=== PATIENT | male | born 1945 | race Caucasian/White ===

== ENCOUNTER 2017-07-01 12:22 | Observation (INO) ==
--- NOTE | 2017-06-30 08:58 | Discharge Summary ---
<Siria Loera E - Last Filed: 06/30/17 08:55> Date of Encounter: 06/30/17 - Discharge Diagnosis (1) Status post total right knee replacement Priority: Primary Status: Acute (2) Arthritis of right knee Priority: Primary Status: Chronic (3) Pain in right knee Priority: Primary Status: Chronic Qualifiers: Chronicity: chronic Qualified Code(s): M25.561 - Pain in right knee; G89.29 - Other chronic pain; G89.29 - Other chronic pain (4) Chronic pain Priority: Secondary Status: Chronic Qualifiers: Chronic pain type: other chronic pain Qualified Code(s): G89.29 - Other chronic pain (5) HLD (hyperlipidemia) Priority: Secondary Status: Chronic Qualifiers: Hyperlipidemia type: unspecified Qualified Code(s): E78.5 - Hyperlipidemia , unspecified (6) HTN (hypertension) Priority: Secondary Status: Chronic Qualifiers: Hypertension type: unspecified Qualified Code(s): I10 - Essential (primary ) hypertension (7) Obesity Priority: Secondary Status: Chronic Qualifiers: Obesity type: unspecified obesity type Obesity classification: unspecified obesity classification Serious obesity comorbidity presence: unspecified whether serious comorbidity present Qualified Code(s): E66.9 - Obesity, unspecified - Hospital Course Hospital course: Mr. Alston is a 71 year old male - Time Spent with Patient Total time spent providing and/or coordinating discharge services: - Discharge Medications Home Medications: Aspirin 325 mg PO DAILY 01/16/16 [History] Lisinopril [Zestril] 40 mg PO DAILY 01/16/16 [History] Multivitamin [Multivitamins] 1 each PO DAILY 01/16/16 [History] [place]-3/Dha/Epa/Fish Oil [Fish Oil 1,000 mg Softgel] 1 each PO DAILY 01/16/16 [ History] Omeprazole [PriLOSEC] 40 mg PO DAILY 01/16/16 [History] Saw [place] 160 mg PO DAILY 01/16/16 [History] Simvastatin [Zocor] 20 mg PO HS 01/16/16 [History] Tamsulosin [Flomax] 0.4 mg PO DAILY 01/16/16 [History] Aspirin Enteric Coated [Aspirin EC] 325 mg PO BID 10 Days #20 tab 06/30/17 [Rx] HYDROcodone/Acet 10/325 mg [[place] 10-325 mg] 1 tab PO Q6H PRN 07/01/17 [History] Allergies/Adverse Reactions: 3 Allergy/AdvReac Type Severity Reaction Status Date / Time No Known Allergies Allergy Verified 07/01/17 12:52 Primary care physician: Krunal Reed - Patient Status Disposition: Home, Self-Care Condition: Good - Discharge Instructions Follow Up With: Adarsh Urena DO [Primary Care Provider] - <Gilberto Paz - Last Filed: 07/02/17 06:26> Orders not resulted at time of discharge: Pending orders 07/01/17 01:00 XR knee RT limited 1-2V [XR] Routine Hemoglobin and Hematocrit [HEME] Routine 07/01/17 13:59 Chem 7 [Basic Metabolic Panel] Stat 07/01/17 14:11 US anesthesia pain block [US] Routine Date of Encounter: 07/02/17 Time of Encounter: 06:25 - Discharge Diagnosis (1) Obesity (BMI 30.0-34.9) Priority: Secondary Status: Chronic (2) HTN (hypertension) Priority: Secondary Status: Chronic Qualifiers: Hypertension type: unspecified secondary hypertension Qualified Code(s): I15.9 - Secondary hypertension, unspecified; I15 - Secondary hypertension (3) Status post total right knee replacement Priority: Primary Status: Acute (4) Arthritis of right knee Priority: Primary Status: Chronic (5) Chronic pain Priority: Secondary Status: Chronic Qualifiers: Chronic pain type: other chronic pain Qualified Code(s): G89.29 - Other chronic pain (6) HLD (hyperlipidemia) Priority: Secondary Status: Chronic Qualifiers: Hyperlipidemia type: unspecified Qualified Code(s): E78.5 - Hyperlipidemia , unspecified (7) HTN (hypertension) Priority: Secondary Status: Chronic Qualifiers: Hypertension type: unspecified Qualified Code(s): I10 - Essential (primary ) hypertension - Hospital Course Hospital course: Mr. Alston is a 71 year old male Status post right total knee replacement The patient had an uneventful postoperative course. They received antibiotics and physical therapy and were discharged in stable condition. There will follow -up in the office in 2 weeks. - Time Spent with Patient Total time spent providing and/or coordinating discharge services: Primary care physician: Krunal Reed Labs on day of discharge: Labs from last 24 hours 07/01/17 13:59 WBC 8.0 RBC 4.91 Hgb 13.9 Hct 41.0 MCV 83.5 MCH 28.3 MCHC 33.9 RDW 12.6 Plt Count 214 MPV 9.6 Immature Gran % 0.4 Seg Neutrophils % 64.1 Lymphocytes % 27.3 Monocytes % 6.0 Eosinophils % 1.7 Basophils % 0.5 Neutrophils # 5.1 Lymphocytes # 2.2 Monocytes # 0.5 Eosinophils # 0.1 Basophils # 0.0 - Patient Status Functional capacity at discharge: uses cane/walker Overall status at discharge: patient is progressing back to baseline
[2017-07-01] MEDS ORDERED: CeFAZolin Syr 2,000MG/20 ML 2,000 MG/20 ML SYRINGE IVPB ONE (12:51)
[2017-07-01] MEDS ORDERED: Ringers Solution, Lactated 1,000 ML IVC SCH ×2 (13:00→17:40)
[2017-07-01] MEDS ORDERED: Famotidine 20 MG/2 ML VIAL IVP ONE (13:50)
[2017-07-01] MEDS ORDERED: Pregabalin 75 MG CAPSULE PO ONE (13:51)
--- NOTE | 2017-07-01 14:14 | Anesthesia Evaluation PreOp ---
Date of Encounter: 07/01/17 Time of Encounter: 14:10 - Past History Planned Operation: Rt TKA Cardiac History: HTN, Hyperlipidemia Pulmonary History: Denies Any Significant HX RETINA SUBSPECIALIST History: Denies Any Significant HX Other Medical History: GERD, Other (OA) Anesthesia History: No Prior Anesthetic Complications Alcohol Use: occasionally Drug use: none Medications and Allergies Aspirin 325 mg PO DAILY 01/16/16 [History] Lisinopril [Zestril] 40 mg PO DAILY 01/16/16 [History] Multivitamin [Multivitamins] 1 each PO DAILY 01/16/16 [History] [place]-3/Dha/Epa/Fish Oil [Fish Oil 1,000 mg Softgel] 1 each PO DAILY 01/16/16 [ History] Omeprazole [PriLOSEC] 40 mg PO DAILY 01/16/16 [History] Saw [place] 160 mg PO DAILY 01/16/16 [History] Simvastatin [Zocor] 20 mg PO HS 01/16/16 [History] Tamsulosin [Flomax] 0.4 mg PO DAILY 01/16/16 [History] Aspirin Enteric Coated [Aspirin EC] 325 mg PO BID 10 Days #20 tab 06/30/17 [Rx] HYDROcodone/Acet 10/325 mg [[place] 10-325 mg] 1 tab PO Q6H PRN 07/01/17 [History] 3 Allergy/AdvReac Type Severity Reaction Status Date / Time No Known Allergies Allergy Verified 07/01/17 12:52 - Meds/Allergy Pre-op Review Medications Reviewed: Yes Allergies Reviewed: Yes Beta Blockers on Current Med List: No Anesthesia Results - Labs Laboratory Tests 01/10/16 01/17/16 05/24/17 09:45 03:58 07:33 Hgb 12.7 L Hct 36.6 L Plt Count 217 Sodium 141 Potassium 4.2 BUN 30 H Creatinine 1.16 - Imaging EKG: report reviewed (SR Rt BBB) Anesthesia Exam O2 Sat Height 1.63 m Height 1.63 m Height 1.63 m Weight 91.172 kg Weight 91.172 kg Weight 91.172 kg O2 Sat by Pulse Oximetry 95 Vital Signs Temp Pulse Resp BP Pulse Ox 97.9 F 57 18 134/78 95 07/01/17 12:40 07/01/17 12:40 07/01/17 12:40 07/01/17 12:40 07/01/17 12:40 Height: 5'4 Weight: 200 lbs NPO (# of Hours): MN Pain Scale: 0 - HEENT Pupil (Motor): Pupils equal, EOMI Mallampati: II Teeth: Normal Oral Opening: Greater than 3 - RETINA SUBSPECIALIST LOC: Oriented RETINA SUBSPECIALIST Motor: Normal RUE, Normal LUE, Normal RLE, Normal LLE, Normal Face RETINA SUBSPECIALIST Sensory: Normal: RUE, LUE, RLE, LLE, Face - Cardiac Rhythm: Regular Murmur: None JVD: No Carotid Bruit: No - Pulmonary Breath Sounds: bilateral Clear Respiratory Effort: Symmetrical Anesthesia Assess/Plan ASA Score: 2 Modified Pingree Scale for Level of Consciousness: Cooperative, oriented, and tranquil Anesthetic Plan: Regional, MAC Monitoring Plan: Standard Monitors Recovery Plan: PACU (Discussed SAB with Adductor Canal Block and MAC, possible GA, agrees to proceed)
[2017-07-01 14:18] LABS: Basophils % 0.5 %; Eosinophils # 0.1 K/mcL (0.0-0.6); Eosinophils % 1.7 %; Hemoglobin 13.9 g/dL (12.9-16.9); Immature Granulocytes % 0.4 % (0-4); Lymphocytes # 2.2 K/mcL (0.6-4.6); Lymphocytes % 27.3 %; Mean Corpuscular HGB Conc 33.9 g/dL (31.6-35.5); Mean Corpuscular Hemoglobin 28.3 pg (28.0-33.3); Mean Corpuscular Volume 83.5 fL (83.0-100.0); Mean Platelet Volume 9.6 fL (9.4-12.4); Monocytes # 0.5 K/mcL (0.0-1.3); Neutrophils # 5.1 K/mcL (1.6-8.9); Platelet Count 214 K/mcL (140-400); Red Blood Count 4.91 M/mcL (4.19-5.50); Red Cell Distribution Width 12.6 % (11.5-14.5); Segmented Neutrophils % 64.1 %
[2017-07-01] MEDS ORDERED: Propofol 500 MG/50 ML INFUS..BTL ONE ×2 (14:22→14:26)
[2017-07-01] MEDS ORDERED: Lidocaine -MPF 2% 2 ML VIAL ONE (14:25)
[2017-07-01] MEDS ORDERED: *HR* Succinylcholine 200 MG/10 ML VIAL IVP ONE (14:25)
[2017-07-01] MEDS ORDERED: Lidocaine -MPF 4% 5 ML AMPUL ONE (14:25)
[2017-07-01] MEDS ORDERED: Dexamethasone 4 MG/ML VIAL ONE (14:25)
[2017-07-01] MEDS ORDERED: Ondansetron 4 MG/2 ML VIAL ONE (14:25)
[2017-07-01] MEDS ORDERED: *HR* Propofol 200 MG/20 ML VIAL IVP ONE (14:26)
[2017-07-01] MEDS ORDERED: *HR* Midazolam HCl 2 MG/2 ML VIAL ONE (14:26)
[2017-07-01] MEDS ORDERED: *HR* FentaNYL (PF) 100 MCG/2 ML VIAL ONE (14:26)
[2017-07-01] MEDS ORDERED: ROPIVACAINE HCL/PF 0.5% 30 ML VIAL ONE (14:40)
--- NOTE | 2017-07-01 14:40 | History & Physical Report ---
Date of Encounter: 07/01/17 Time of Encounter: 14:39 24 Hour HP Update - Instructions Instructions: If the History and Physical is less than 30 days old and was completed prior to A.M. admission and or procedure and has NOT been updated on calendar day of procedure please complete this update prior to performing procedure. - Update Patient reports changes in Medical Condition: No Changes in examination, assessment, or condition: No Changes in Medication: No Preop tests/diagnostics Reviewed: Yes Surgery Remains Indicated: Yes Consent for Planned Operative Procedure(s) Verified: Yes - Pre-Operative Checklist Preoperative Checklist Indicated: No Prophylactic Antibiotic Ordered: Yes Is VTE Prophylaxis Indicated?: Yes
[2017-07-01 14:54] LABS: BUN/Creatinine Ratio 30 (6-26); Blood Urea Nitrogen 30 mg/dL (8-23); Carbon Dioxide 24 mEq/L (23-29); Chloride 108 mEq/L (98-107); Glucose 101 mg/dL (70-105); Osmolality,Calculated 298 (280-300); Potassium 4.7 mEq/L (3.5-5.1); Sodium 141 mEq/L (136-145); eGFR For African Americans > 60 (> 60); eGFR For Non-African Americans > 60 (> 60)
[2017-07-01] MEDS ORDERED: Ethanol\\Acetic Acid\\Na Ace\\Ben 1,000 ML IRRIG.SOLN IR ONE (15:17)
--- NOTE | 2017-07-01 15:35 | Anesthesia Procedures ---
Date of Encounter: 07/01/17 Time of Encounter: 14:10 Procedures: Anesthesia - Epidural/Spinal Patient ID/Chart reviewed: Yes Patient examined: Yes Supplemental Oxygen: Nasal Cannula (2) Supplemental Oxygen Rate (L/min): 2 Sedation: Versed (mg): 2 Sedation: Fentanyl (mcg): 100 Site Prep: Aseptic Technique, Sterile prep and drape, Povidone-Iodine 1% Patient position: upright Amount of Local Anesthetic used: 5 Interspace Used: L4-L5 Loss of Resistance (LYLY): No Blood: No CSF: Yes Paresthesia: No Spinal Needle Gauge: 24 Spinal Dose: 2cc 0.5% Marcaine, Duramorph 0.3 mg Procedure: Patient sitting,sterile prep and drape 24 g needle, csf, patient tolerated procedure well Vitals + FHT's: Vital Signs/O2 Sat/Glucose, Most Current Temp Pulse Resp BP Pulse Ox 07/01/17 15:19 57 13 97/85 99 07/01/17 15:14 61 13 101/80 99 07/01/17 15:09 60 14 103/56 97 07/01/17 14:55 56 16 107/59 98 07/01/17 12:40 97.9 F 57 18 134/78 95 - Nerve Block Procedure Date: 07/01/17 Pre-op Diagnosis: OA Rt Knee Surgical Procedure: Rt TKA Checklist: Correct Patient Identifier Correct side: Right Blood Thinner: No Monitor Applied: EKG, BP, Pulse Oximetry Supplemental Oxygen via Nasal Cannula (L/min): 2 Sedation: Versed (mg): 2 Sedation: Fentanyl (mcg): 100 Indication: Post Op Analgesia Pre-op Neuro Deficits: No Block Type: Other (Adductor Canal Block) Catheter placed: No Depth at skin (cm): 4 Sterile Technique: Yes Ultrasound used: Yes Anatomy identified: Yes Visual spread of Local: Yes Neuro Stimulation: No Blood on Needle Aspiration: No Smooth Injection of Local: Yes Pain with Injection of Local: No Prep: Chlorhexadine Needle: 21 x 100 mm Stimuplex Local: Ropivacaine, Other (precedex 0.2 mg) Volume (cc): 30cc Number of Attempts: 1 Complications: None/effective block Vitals: Vital Signs/O2 Sat/Glucose, Most Current Temp Pulse Resp BP Pulse Ox 07/01/17 15:19 57 13 97/85 99 07/01/17 15:14 61 13 101/80 99 07/01/17 15:09 60 14 103/56 97 07/01/17 14:55 56 16 107/59 98 07/01/17 12:40 97.9 F 57 18 134/78 95
[2017-07-01] MEDS ORDERED: EPHEDrine 50 MG/ML VIAL ONE (15:38)
[2017-07-01] MEDS ORDERED: Ondansetron 4 MG/2 ML VIAL IVP PRN ×3 (16:22→17:40)
[2017-07-01] MEDS ORDERED: *HR* OxyCODONE/APAP 5/325 TABLET PO PRN ×5 (16:22→17:40)
[2017-07-01] MEDS ORDERED: Naloxone 0.4 MG/ML INJ IVP PRN ×4 (16:22→17:40)
--- NOTE | 2017-07-01 16:25 | Orthopedic Operative Note ---
Date of procedure: 07/01/17 Pre-op diagnosis: right knee arthritis Post-op diagnosis: same Procedure: Procedure: Right robotic-assisted Total knee replacement Estimated blood loss: 200 cc Hardware: Metal and polyethylene replacement. [place] Femur: 4 Tibia: 4 TS insert: 13 Patella: 36 Exam Under anesthesia: 1 degree flexion contracture 17 degree varus as calculated by the robot full flexion and no instability Procedural Notes: Grade 4 arthritic changes all 3 compartments. Operative procedure: The patient was brought to the operating room and placed on the operating room table. After general anesthesia was administered the operative knee was examined. Findings were noted in the exam under anesthesia. The operative extremity was prepped and draped in sterile surgical fashion. The patient received IV antibiotics prior to skin incision. A standard midline incision was made centered over the patella. The incision was made through the skin and subcutaneous tissue. A medial parapatellar tendon approach was performed. Care was taken to preserve tissue along the medial aspect of the patella. And to protect the patella tendon. The deep MCL was released off the medial tibia. The infra patella fat pad was excised. The patella was everted and cut was made at the level of the insertion of the quadriceps and patella tendon. The patella was sized to 36 the guide was seated and the lug holes are drilled. Knee was brought into flexion. Patient noted to have grade 4 arthritic changes all 3 compartments. Steinmann pins were placed in the tibia and the femur for the tibial and femoral arrays respectively. Checkpoints were also placed in the tibia and the femur for calculation purposes. The knee including the femur and the tibial registered. Osteophytes, ACL and PCL were excised at this point. Extension and flexion were assessed with a valgus stress components were adjusted on the computer to balance the knee. Femoral cuts were made first with robotic assistance, these included the anterior cut posterior cuts chamfer cuts. Tibial cut was then performed with robotic assistance as well. Bone fragments were removed, as well as the medial and lateral meniscus. The size 4 femoral guide was seated box cut was made lug holes are drilled. The size 4 tibial tray was seated and prepared with the fin cutter. Trial reduction with the 13 TS Rakel revealed extension of0 degree , 6 degrees varus and full flexion. No varus valgus instability. Trial reduction revealed excellent patella tracking. All trial components were removed all bony surfaces were irrigated. The Tibia was seated followed by the femur, The Rakel size 13 was seated and secured patella. Patient had similar findings for motion and stability. The knee was closed by the PA. The knee was then irrigated out with 2 L of pulse irrigation. The extensor mechanism was closed with #2 FiberWire suture and #2 PDS suture. The subcutaneous tissue was then irrigated and closed deep with #1 PDS suture superficially with 0 PDS suture and skin was closed with zip tie The patient was then placed in a sterile dressing and a postoperative brace extubated and transferred to recovery room in stable condition. Anesthesia: spinal Surgeon: Gilberto Paz Was there an medical billing assistant present: Yes Freight Agent: Ana Glover Estimated blood loss (cc): 200 Condition: stable Disposition: PACU
[2017-07-01] MEDS ORDERED: Ondansetron 4 MG/2 ML VIAL IVP ONE (16:31)
[2017-07-01] MEDS ORDERED: MORPHINE SUL Oral CONC 10 MG/0.5 ML ORAL.SYG SL PRN (16:31)
[2017-07-01] MEDS ORDERED: *HR* Promethazine 25 MG/ML VIAL IVP PRN (16:31)
[2017-07-01 17:20] LABS: Hematocrit 39.4 % (37.5-50.1); Hemoglobin 13.4 g/dL (12.9-16.9)
--- NOTE | 2017-07-01 17:25 | Anesthesia Evaluation Post Op ---
Date of Encounter: 07/01/17 Time of Encounter: 17:19 - Vital Signs Vital Signs: vss - Lungs Lungs: Clear Ascult./Percussion - Airway Airway: Non-obstructed - Cardiovascular Baseline Rhythm - Mental Status Mental Status: Asleep with brisk response to light stimulation - Pain Pain Scale used: Linda (Faces) - Nausea Vomiting Nausea Vomiting: Not Present - Hydration Hydration: Ice chips - Discharge PostOp Status: Transfer Patient to floor
[2017-07-01] MEDS ORDERED: *HR* Morphine 2 MG/ML SYRINGE IVP PRN ×2 (17:26→17:40)
[2017-07-01] MEDS ORDERED: Temazepam 15 MG CAPSULE PO PRN (17:40)
[2017-07-01] MEDS ORDERED: Sennosides 8.6 MG TABLET PO PRN (17:40)
[2017-07-01] MEDS ORDERED: MOM Conc 10 ML UD.LIQ PO PRN (17:40)
[2017-07-01] MEDS ORDERED: *HR* Enoxaparin 30 MG/0.3 ML SYRINGE SQ SCH (18:00)
[2017-07-01] MEDS: *HR* Enoxaparin 30 MG/0.3 ML SYRINGE SQ SCH (18:21)
[2017-07-01] MEDS: ceFAZolin 2,000 MG in 0.9 % Sodium Chloride 100 ML IVPB SCH (23:06)
[2017-07-01] MEDS: traMADol 50 MG TABLET PO PRN (23:47)
[2017-07-02 02:14] LABS: Hematocrit 36.1 % (37.5-50.1); Hemoglobin 12.3 g/dL (12.9-16.9)
[2017-07-02 02:25] LABS: BUN/Creatinine Ratio 23 (6-26); Blood Urea Nitrogen 29 mg/dL (8-23); Calcium 8.4 mg/dL (8.6-10.3); Carbon Dioxide 24 mEq/L (23-29); Chloride 103 mEq/L (98-107); Glucose 167 mg/dL (70-105); Osmolality,Calculated 288 (280-300); Potassium 4.6 mEq/L (3.5-5.1); Sodium 134 mEq/L (136-145); eGFR For African Americans > 60 (> 60); eGFR For Non-African Americans 56 (> 60)
[2017-07-02] MEDS: *HR* Enoxaparin 30 MG/0.3 ML SYRINGE SQ SCH ×2 (04:52→17:44)
--- NOTE | 2017-07-02 06:27 | Orthopedics Progress Note ---
Date of Encounter: 07/02/17 Time of Encounter: 06:26 - Assessment and Plan (1) Obesity (BMI 30.0-34.9) Current Visit: Yes Status: Chronic (2) HTN (hypertension) Current Visit: No Status: Chronic Qualifiers: Hypertension type: unspecified secondary hypertension Qualified Code(s): I15.9 - Secondary hypertension, unspecified; I15 - Secondary hypertension (3) Status post total right knee replacement Current Visit: No Status: Acute (4) Arthritis of right knee Current Visit: No Status: Chronic (5) Chronic pain Current Visit: No Status: Chronic Qualifiers: Chronic pain type: other chronic pain Qualified Code(s): G89.29 - Other chronic pain (6) HLD (hyperlipidemia) Current Visit: No Status: Chronic Qualifiers: Hyperlipidemia type: unspecified Qualified Code(s): E78.5 - Hyperlipidemia , unspecified (7) HTN (hypertension) Current Visit: No Status: Chronic Qualifiers: Hypertension type: unspecified Qualified Code(s): I10 - Essential (primary ) hypertension Subjective Interval history: Patient was seen this morning doing well without complaints. Afebrile vital signs stable. Operative extremity: Neurovascularly intact Dressing clean dry and intact Calves nontender Assessment and plan: Continue with postoperative care Hematocrit 36 discharged today Objective Vital signs: Vital Signs Temp Pulse Resp BP Pulse Ox 07/02/17 04:30 98.6 F 77 17 119/64 94 07/02/17 01:04 98.1 F 86 18 127/89 96 07/01/17 20:00 97.8 F 88 16 128/74 07/01/17 19:03 97.8 F 65 14 126/77 95 07/01/17 18:16 97.8 F 66 16 118/67 95 07/01/17 17:31 97.5 F L 70 16 126/72 97 07/01/17 17:21 97.3 F L 65 16 118/83 96 07/01/17 17:11 65 16 116/85 98 07/01/17 17:01 64 16 118/75 97 07/01/17 16:51 97.3 F L 69 16 116/68 95 07/01/17 15:19 57 13 97/85 99 07/01/17 15:14 61 13 101/80 99 07/01/17 15:09 60 14 103/56 97 07/01/17 14:55 56 16 107/59 98 07/01/17 12:40 97.9 F 57 18 134/78 95 Intake and Output 07/01/17 07/01/17 07/02/17 15:59 23:59 07:59 Intake Total 20 / 20 150 / 150 50 / 50 Output Total 200 / 200 850 / 850 Balance 20 / 20 -50 / -50 -800 / -800 Intake: IV Fluids 20 / 20 100 / 100 Ancef Syringe 2,000 MG/20 ML 2, 20 / 20 000 mg In 20 ml @ 200 mls/hr IVPB PREOP ONE Rx#:[id number] Ancef 2,000 MG In 0.9 % Sodium 100 / 100 Chloride 100 ML @ 200 mls/hr IVPB Q8HR KAILEE Rx#:[id number] Oral 50 / 50 50 / 50 Output: Estimated Blood Loss 200 / 200 Straight Cath 850 / 850 Other: Weight 91.172 kg - Labs CBC & BMP: 07/02/17 01:52 07/02/17 01:52 Labs: Abnormal lab results Hgb 12.3 g/dL (12.9-16.9) L 07/02/17 01:52 Hct 36.1 % (37.5-50.1) L 07/02/17 01:52 Sodium 134 mEq/L (136-145) L 07/02/17 01:52 BUN 29 mg/dL (8-23) H 07/02/17 01:52 Est GFR (Non-Af Amer) 56 (> 60) L 07/02/17 01:52 Glucose 167 mg/dL (70-105) H 07/02/17 01:52 Calcium 8.4 mg/dL (8.6-10.3) L 07/02/17 01:52 - VTE Documentation of Mechanical Device: Venous foot pump, device Consult Discharge Plan - Plan Referrals: Adarsh Urena DO [Primary Care Provider] -
[2017-07-02] MEDS: Aspirin 325 MG TABLET PO SCH (08:30)
[2017-07-02] MEDS: Multivit/Ca/Min/Fe/FA 1 TAB TABLET PO SCH (08:30)
[2017-07-02] MEDS: Lisinopril 20 MG TABLET PO SCH (08:30)
[2017-07-02] MEDS: (Omega-3/Dha/Epa/Fish Oil [Fish Oil 1,000 Mg Softgel] PO SCH (08:32)
[2017-07-02] MEDS: traMADol 50 MG TABLET PO PRN ×2 (08:34→14:46)
[2017-07-02] MEDS: ceFAZolin 2,000 MG in 0.9 % Sodium Chloride 100 ML IVPB SCH (09:20)
[2017-07-02 13:33] LABS: Bilirubin,Urine Negative (Negative); Blood,Urine Large (Negative); Clarity,Urine Turbid (Clear); Color,Urine Dark Yellow (Yellow); Glucose,Urine (UA) Normal (Normal); Ketones,Urine Negative (Negative); Leukocyte Esterase,Urine Small (Negative); Nitrite,Urine Negative (Negative); PH,Urine 5.5 pH Units (5.0-8.0); Protein,Urine 30 mg/dL (Neg-Trace); Specific Gravity,Urine 1.024 (1.010-1.025); Urobilinogen,Urine Normal (Normal)
[2017-07-02 13:36] LABS: Bacteria,Urine None Seen per hpf (None-Few); Hyaline Casts,Urine None Seen per lpf (None-Few); RBC,Urine TNTC per hpf (0-3); Squamous Epithelial Cell,Urine Few per lpf (None-Few)
[2017-07-02] MEDS: *HR* OxyCODONE Immed Rel 5 MG TABLET PO PRN ×3 (13:42→21:52)
[2017-07-02] MEDS ORDERED: 0.9 % Sodium Chloride 1,000 ML IVC SCH (14:30)
[2017-07-02] MEDS ORDERED: *HR* OxyCODONE Immed Rel 5 MG TABLET PO ONE (18:24)
[2017-07-03 01:22] LABS: Hematocrit 31.2 % (37.5-50.1); Hemoglobin 10.8 g/dL (12.9-16.9)
[2017-07-03 01:39] LABS: BUN/Creatinine Ratio 23 (6-26); Blood Urea Nitrogen 23 mg/dL (8-23); Calcium 7.9 mg/dL (8.6-10.3); Carbon Dioxide 24 mEq/L (23-29); Chloride 101 mEq/L (98-107); Glucose 144 mg/dL (70-105); Osmolality,Calculated 276 (280-300); Potassium 4.4 mEq/L (3.5-5.1); Sodium 130 mEq/L (136-145); eGFR For African Americans > 60 (> 60); eGFR For Non-African Americans > 60 (> 60)
[2017-07-03] MEDS: *HR* OxyCODONE Immed Rel 5 MG TABLET PO PRN (04:59)
[2017-07-03] MEDS: *HR* Enoxaparin 30 MG/0.3 ML SYRINGE SQ SCH (04:59)
[2017-07-03 06:06] LABS: Bilirubin,Urine Negative (Negative); Blood,Urine Large (Negative); Clarity,Urine Cloudy (Clear); Color,Urine Yellow (Yellow); Glucose,Urine (UA) Normal (Normal); Ketones,Urine Negative (Negative); Leukocyte Esterase,Urine Negative (Negative); Nitrite,Urine Negative (Negative); Protein,Urine Negative (Neg-Trace); Specific Gravity,Urine 1.019 (1.010-1.025); Urobilinogen,Urine Normal (Normal)
[2017-07-03 06:09] LABS: Bacteria,Urine None Seen per hpf (None-Few); Hyaline Casts,Urine None Seen per lpf (None-Few); RBC,Urine 30-50 per hpf (0-3); Squamous Epithelial Cell,Urine None Seen per lpf (None-Few); WBC,Urine 0-3 per hpf (0-3)
[2017-07-03 06:37] VITALS: BP 164/95
[2017-07-03] MEDS: Lisinopril 20 MG TABLET PO SCH (07:54)
[2017-07-03] MEDS: (Omega-3/Dha/Epa/Fish Oil [Fish Oil 1,000 Mg Softgel] PO SCH (07:54)
[2017-07-03] MEDS: Multivit/Ca/Min/Fe/FA 1 TAB TABLET PO SCH (07:54)
[2017-07-03] MEDS: Aspirin 325 MG TABLET PO SCH (07:54)
--- NOTE | 2017-07-03 09:00 | Orthopedics Progress Note ---
Date of Encounter: 07/03/17 Time of Encounter: 08:59 - Assessment and Plan (1) Obesity (BMI 30.0-34.9) Current Visit: Yes Status: Chronic (2) HTN (hypertension) Current Visit: No Status: Chronic Qualifiers: Hypertension type: unspecified secondary hypertension Qualified Code(s): I15.9 - Secondary hypertension, unspecified; I15 - Secondary hypertension (3) Status post total right knee replacement Current Visit: No Status: Acute (4) Arthritis of right knee Current Visit: No Status: Chronic (5) Chronic pain Current Visit: No Status: Chronic Qualifiers: Chronic pain type: other chronic pain Qualified Code(s): G89.29 - Other chronic pain (6) HLD (hyperlipidemia) Current Visit: No Status: Chronic Qualifiers: Hyperlipidemia type: unspecified Qualified Code(s): E78.5 - Hyperlipidemia , unspecified (7) HTN (hypertension) Current Visit: No Status: Chronic Qualifiers: Hypertension type: unspecified Qualified Code(s): I10 - Essential (primary ) hypertension Subjective Interval history: Patient was seen this morning doing well without complaints. Afebrile vital signs stable. Operative extremity: Neurovascularly intact Dressing clean dry and intact Calves nontender Assessment and plan: Continue with postoperative care discharged today Objective Vital signs: Vital Signs Temp Pulse Resp BP Pulse Ox 07/03/17 06:36 98.9 F 86 18 164/95 96 07/03/17 05:15 98.6 F 71 16 138/79 94 07/03/17 00:07 98.9 F 73 18 158/89 96 07/02/17 20:34 98.9 F 74 18 129/73 95 07/02/17 16:42 98.1 F 73 18 117/76 97 07/02/17 10:44 97.9 F 115 18 116/76 96 Intake and Output 07/02/17 07/03/17 07/03/17 23:59 07:59 15:59 Intake Total 500 / 500 240 / 240 Output Total 100 / 100 1100 / 1100 Balance -100 / -100 -600 / -600 240 / 240 Intake: IV Fluids 100 / 100 Oral 400 / 400 240 / 240 Output: Urine 100 / 100 1100 / 1100 Other: Meal Breakfast Percent of Meal Consumed 95% # Voids 1 - Labs CBC & BMP: 07/03/17 01:03 07/03/17 01:03 Labs: Abnormal lab results Hgb 10.8 g/dL (12.9-16.9) L D 07/03/17 01:03 Hct 31.2 % (37.5-50.1) L 07/03/17 01:03 Sodium 130 mEq/L (136-145) L 07/03/17 01:03 Glucose 144 mg/dL (70-105) H 07/03/17 01:03 Calculated Osmolality 276 (280-300) L 07/03/17 01:03 Calcium 7.9 mg/dL (8.6-10.3) L 07/03/17 01:03 Urine Clarity Cloudy (Clear) A 07/03/17 05:50 Urine Blood Large (Negative) H 07/03/17 05:50 Urine Microscopic RBC 30-50 per hpf (0-3) H 07/03/17 05:50 Ur Culture Indicated? YES (NO) A 07/02/17 13:10 - VTE Documentation of Mechanical Device: Venous foot pump, device Consult Discharge Plan - Plan Referrals: Adarsh Urena DO [Primary Care Provider] -
[2017-07-03] MEDS ORDERED: *HR* HYDROcodone/Acet 5/325 mg TABLET PO PRN (09:05)
== END 2017-07-03 14:44 | disposition home or self-care (01) | DRG 470 ==
LOC: SAMDAY 12:22 → 3NENU 17:37 → INTOOBSV 17:37
PROVIDERS: ADMIT Orthopaedic Surgery; ATTEND Orthopaedic Surgery